=== PATIENT | female | born 1995 | race Two or more races ===

== ENCOUNTER 2022-11-11 13:04 | Emergency (ER) | payer MEDICAID ==
[~2022-11-11] VITALS: Ht 154.9 cm; Wt 52.3 kg
[2022-11-11 13:17] VITALS: BP 122/79
[2022-11-11 13:41] LABS: BASOPHILS % 0.5 % (0.0-2.0); EOSINOPHILS % 0.8 % (0.0-5.0); HEMATOCRIT. 42.5 % (36.0-48.0); HEMOGLOBIN. 14.5 g/dL (12.0-16.0); LYMPHOCYTES % 33.2 % (20.0-50.0); MEAN CORPUSCULAR HEMOGLOBIN 29.9 pg (28.0-32.0); MEAN CORPUSCULAR VOLUME 87.4 fL (81.0-99.0); MEAN PLATELET VOLUME 8.7 fl (7.4-10.4); MONOCYTES % 8.9 % (2.0-8.0); NEUTROPHILS % 56.6 % (40.0-76.0); PLATELET 215 x1000/uL (130-400); RED BLOOD CELL COUNT 4.86 mill/uL (4.2-5.4)
[2022-11-11 13:48] LABS: CHLORIDE 109 mEq/L (98-107)
[2022-11-11 13:50] LABS: HCG SCREEN NEGATIVE
[2022-11-11] MEDS ORDERED: KETOROLAC 30MG/ML VIAL IM ONE (14:30)
[2022-11-11 14:35] LABS: CLARITY URINE CLEAR (CLEAR); COLOR URINE YELLOW (YELLOW); KETONES URINE NEGATIVE (NEGATIVE); LEUKOCYTE ESTERASE URINE NEGATIVE (NEGATIVE); NITRITE URINE NEGATIVE (NEGATIVE); OCCULT BLOOD URINE NEGATIVE (NEGATIVE); PH URINE 6.5 (4.5-8.0); PROTEIN URINE NEGATIVE (NEGATIVE); SPECIFIC GRAVITY URINE 1.018 (1.005-1.030); UROBILINOGEN URINE 0.2 E.U./dL (0.2-1.0)
[2022-11-11] MEDS ORDERED: HYDROCODONE/ACETAMINOPHEN 5/325MG TABLET PO ONE ×2 (16:30→19:45)
[2022-11-11] MEDS ORDERED: METR-167 MT (17:07)
[2022-11-11] MEDS ORDERED: DOXYCYCLINE HYCLATE 100MG CAPSULE PO ONE (18:00)
[2022-11-11] MEDS ORDERED: CEFTRIAXONE SODIUM 500 MG/VIAL IM ONE (18:00)
[2022-11-11] MEDS ORDERED: IBUPROFEN 600MG TABLET PO NR (18:45)
[2022-11-11] MEDS ORDERED: DOXYCYCLINE HYCLATE 100MG CAPSULE PO NR (19:00)
[2022-11-11] MEDS ORDERED: CEFTRIAXONE SODIUM 500 MG/VIAL IM NR (19:00)
[2022-11-11] MEDS ORDERED: TRAM50TA3 MT (19:43)
[2022-11-11] MEDS ORDERED: IBUP-2030 MT (19:43)
== END 2022-11-11 20:09 | disposition home or self-care (01) ==
LOC: ER 13:04
DX: N76.0 Acute vaginitis (principal)
CPT/HCPCS: 36415; 74176; 76830; 76856; 80053; 81003; 81025; 84703; 85025; 87210; 87591; 96372; 99285; J1885; Z7610

== ENCOUNTER 2023-01-04 08:41 | Emergency (ER) | payer MEDICAID ==
[~2023-01-04] VITALS: Ht 154.9 cm; Wt 50.0 kg
[~2023-01-04 08:41] MED LIST: IBUP-2030 MT; METR-167 MT; TRAM50TA3 MT
[2023-01-04 09:31] LABS: BASOPHILS % 0.2 % (0.0-2.0); HEMATOCRIT. 42.1 % (36.0-48.0); HEMOGLOBIN. 14.5 g/dL (12.0-16.0); LYMPHOCYTES % 9.3 % (20.0-50.0); MEAN CORPUSCULAR HEMOGLOBIN 30.1 pg (28.0-32.0); MEAN CORPUSCULAR VOLUME 87.4 fL (81.0-99.0); MEAN PLATELET VOLUME 9.1 fl (7.4-10.4); MONOCYTES % 6.5 % (2.0-8.0); PLATELET 202 x1000/uL (130-400); RED BLOOD CELL COUNT 4.82 mill/uL (4.2-5.4); RED CELL DISTRIBUTION WIDTH 14.3 % (11.6-14.6)
[2023-01-04 09:41] LABS: CHLORIDE 106 mEq/L (98-107)
[2023-01-04 10:25] LABS: CLARITY URINE CLEAR (CLEAR); COLOR URINE DARK YELLOW (YELLOW); KETONES URINE 4+ (NEGATIVE); LEUKOCYTE ESTERASE URINE TRACE (NEGATIVE); NITRITE URINE NEGATIVE (NEGATIVE); OCCULT BLOOD URINE NEGATIVE (NEGATIVE); PH URINE 7.5 (4.5-8.0); PROTEIN URINE 2+ (NEGATIVE)
[2023-01-04] MEDS ORDERED: KETOROLAC 30MG/ML VIAL IV STA (11:49)
[2023-01-04] MEDS ORDERED: SODIUM CHLORIDE 0.9% 1,000 ML IV ONE ×2 (12:00→14:45)
[2023-01-04] MEDS ORDERED: FAMOTIDINE 20MG/2ML VIAL IV ONE (12:00)
[2023-01-04] MEDS ORDERED: ONDANSETRON HCL 4MG/2ML INJ IV ONE (12:00)
[2023-01-04] MEDS ORDERED: ONDANSETRON HCL 4MG/2ML INJ IV NR (14:20)
[2023-01-04] MEDS ORDERED: ONDA4TAB50 PO (15:46)
[2023-01-04] MEDS ORDERED: ACET-2708 PO (15:46)
[2023-01-04 16:40] VITALS: BP 124/80
== END 2023-01-04 16:44 | disposition home or self-care (01) ==
LOC: ER 08:50
DX: S00.93XA Contusion of unspecified part of head, initial encounter (principal); K29.00 Acute gastritis without bleeding; M25.522 Pain in left elbow; Z90.49 Acquired absence of other specified parts of digestive tract; Z98.890 Other specified postprocedural states; Y04.0XXA Assault by unarmed brawl or fight, initial encounter; Y93.89 Activity, other specified; Y92.89 Other specified places as the place of occurrence of the external cause; Y99.8 Other external cause status
CPT/HCPCS: 36415; 70450; 71045; 72100; 73080; 73562; 73610; 73630; 80053; 81003; 83690; 85025; 96361; 96374; 96375; 96376; 99285; J1885; J2405; J3490; J7030; Z7610